=== PATIENT | female | born 1940 | race Caucasian/White ===

== ENCOUNTER 2019-04-29 10:22 | Inpatient (IN) ==
[2019-04-29] MEDS ORDERED: TYLENOL PO PRN (11:13)
[2019-04-29] MEDS ORDERED: ZOFRAN IV PRN (11:13)
[2019-04-29 12:19] LABS: HEMATOCRIT 43.5 % (37.0-47.0); HEMOGLOBIN 13.3 g/dL (12.0-16.0); MCH 27.5 PG (27-31); MCHC 30.6 g/dL (33-37); MCV 89.9 FL (81-99); MPV 10.8 FL (7.4-10.4); RBC 4.84 XMIL (4.2-5.4); RDW 13.9 % (11.5-14.5); WBC 13.2 X1000 (4.8-10.8)
[2019-04-29 12:31] LABS: ALBUMIN 4.3 g/dL (3.5-5.0); CALCIUM 8.8 mg/dL (8.8-10.2); CREATININE 1.7 mg/dL (0.5-0.9); POTASSIUM 4.3 mmol/L (3.5-5.1); TOTAL BILIRUBIN 0.4 mg/dL (0.20-1.00); TOTAL PROTEIN 7.8 g/dL (6.3-8.3)
[2019-04-29] MEDS: NS 1,000 ML IV SCH ×2 (13:58→20:45)
[2019-04-29 17:27] LABS: URINE SOURCE CATH
[2019-04-29 17:36] LABS: BILIRUBIN URINE NEGATIVE (NEGATIVE); BLOOD URINE NEGATIVE (NEGATIVE); COLOR YELLOW; GLUCOSE URINE NEGATIVE (NEGATIVE); KETONE URINE NEGATIVE (NEGATIVE); LEUKOCYTES URINE LARGE (NEGATIVE); NITRITE URINE NEGATIVE (NEGATIVE); PROTEIN URINE TRACE mg/dL (NEGATIVE); SP GRAVITY URINE 1.017; TURBIDITY URINE HAZY (CLEAR); UROBILINOGEN URINE NORMAL (NORMAL)
[2019-04-29 17:39] LABS: UR EPITHELIAL CELLS <10 /HPF (<10); URINE BACTERIA 4+ /HPF; URINE RBC <10 /HPF (<10); URINE WBC TNTC /HPF (<10)
[2019-04-29] MEDS: ZOCOR PO SCH (20:45)
[2019-04-29] MEDS: CIPRO PO SCH (20:46)
[2019-04-29] MEDS: ROBITUSSIN-DM PO PRN (20:46)
[2019-04-29] MEDS: NEURONTIN PO SCH (20:46)
[2019-04-30] MEDS: NS 1,000 ML IV SCH (02:37)
[2019-04-30] MEDS: PRILOSEC PO SCH ×2 (05:50→12:25)
[2019-04-30 06:09] LABS: HEMATOCRIT 41.1 % (37.0-47.0); HEMOGLOBIN 12.1 g/dL (12.0-16.0); MCH 26.7 PG (27-31); MCHC 29.4 g/dL (33-37); MCV 90.7 FL (81-99); RBC 4.53 XMIL (4.2-5.4); RDW 13.8 % (11.5-14.5); WBC 7.25 X1000 (4.8-10.8)
[2019-04-30 06:26] LABS: ALBUMIN 3.7 g/dL (3.5-5.0); CALCIUM 8.3 mg/dL (8.8-10.2); TOTAL BILIRUBIN 0.3 mg/dL (0.20-1.00); TOTAL PROTEIN 6.7 g/dL (6.3-8.3)
[2019-04-30] MEDS: CELEXA PO SCH (09:28)
[2019-04-30] MEDS: DITROPAN XL PO SCH (09:28)
[2019-04-30] MEDS: ASPIRIN PO SCH (09:29)
[2019-04-30] MEDS: CIPRO PO SCH ×2 (09:29→20:38)
[2019-04-30] MEDS: KLOR-CON PO SCH (09:29)
[2019-04-30] MEDS: MOBIC PO SCH (09:29)
[2019-04-30] MEDS: DUONEB (A & A) INH PRN ×3 (11:12→19:30)
--- NOTE | 2019-04-30 11:37 | Diag Imaging Result Doc PS360 ---
EXAM: CHEST-PORTABLE HISTORY: dyspnea TECHNIQUE: Single view of the chest was performed portably. COMPARISON: None. FINDINGS: Lung volumes are reduced. The cardiomediastinal silhouette is within normal limits. The pulmonary vasculature is not congested. No infiltrate, effusion, or pneumothorax is appreciated. IMPRESSION: No acute cardiopulmonary abnormality is identified. Electronically signed by Lisseth Richardson 04/30/2019 11:35 AM
--- NOTE | 2019-04-30 20:33 | HISTORY AND PHYSICAL ---
CHIEF COMPLAINT: Lightheadedness. HISTORY OF PRESENT ILLNESS: The patient is an 79-year-old female who presented to the office initially stating that she was lightheaded, fatigued. She felt like she was fainting and was going to fall. Blood pressure in the office was 70 to 80 systolic. She denies any vomiting or diarrhea. Denies any urinary complaints. Denies any fevers. States she has already taken her blood pressure medication this morning. States that she feels lightheaded, feels like she is going to pass out when she attempts to stand up. SOCIAL HISTORY: Patient is retired. She has a history of smoking. Does not currently smoke. She lives at home in [place]. PAST MEDICAL HISTORY: Obstructive sleep apnea, chronic back pain, hypertension, hyperlipidemia, osteoarthritis. ALLERGIES: No known drug allergies. MEDICATIONS: Dubberly p.r.n., Flonase as needed, Mobic as needed, gabapentin 600 t.i.d., Singulair, Xanax as needed, Lasix 20, omeprazole 20, losartan 50, oxybutynin, simvastatin, Celexa. FAMILY HISTORY: Positive for hypertension. REVIEW OF SYSTEMS: As noted above. In addition, she denies any fevers, chills, cough, congestion. Denies dysuria, frequency. Denies melena, hematochezia. Denies any weight loss. Check her weight on any regular basis. Denies headaches, blurred vision, change in vision. Denies any focalized weakness. PHYSICAL EXAMINATION: VITAL SIGNS: Reviewed. Temp 98.7 degrees, pulse 86, respiratory 20, BP 87/58. GENERAL: Patient is awake. She is alert. She is in no respiratory distress. HEENT: Normocephalic. NECK: Supple. CARDIOVASCULAR: Regular rate. CHEST: Clear, nonlabored. ABDOMEN: Soft, nondistended. EXTREMITIES: Moves all extremities. NEUROLOGIC: No changes. LABS: White count 13. Creatinine 1.7. ASSESSMENT: 1. Acute on chronic renal failure. 2. Leukocytosis. 3. Hypotension in a patient with a known history of high blood pressure. 4. Presyncope. 5. High cholesterol. 6. Obstructive sleep apnea. 7. Chronic pain. 8. Others. PLAN: We are going to admit patient to the hospital. IV fluids. Check urine culture. Follow her blood pressures. Further orders as needed. cc: Parish Toledo MD
[2019-04-30] MEDS: ZOCOR PO SCH (20:38)
[2019-04-30] MEDS: NEURONTIN PO SCH (20:38)
[2019-04-30] MEDS: ROBITUSSIN-DM PO PRN (20:45)
--- NOTE | 2019-05-01 00:23 | PROGRESS NOTE ---
DATE: 04/30/2019 SUBJECTIVE: Patient notes having increased cough, congestion and wheezing. She is having shortness of breath. Still having urinary frequency and urgency with urinary accidents. OBJECTIVE: Vital signs: Reviewed. She is afebrile, blood pressure stable, respiratory 20. General: The patient is lying in bed. She has forced expiratory wheezing that is much more prevalent in the neck than in her lung bases. HEENT: Normocephalic, atraumatic. Cardiovascular: Regular rate. Chest: Relatively clear. Good air movement. She has expiratory wheezing around her neck but her lung bases are clear. Abdomen: Soft, obese. Extremities: Moves all extremities. Neurologic: No changes. ASSESSMENT: 1. Urinary tract infection with gram-negative rods. 2. Acute on chronic renal failure, resolved. 3. Hypotension, resolved. 4 Hypertension. We are not going to restart her home blood pressure medications currently as her blood pressure has been low, stable. cc: Parish Toledo MD MTDD
[2019-05-01 04:46] VITALS: BP 134/89
[2019-05-01] MEDS: PRILOSEC PO SCH (07:10)
[2019-05-01] MEDS: DUONEB (A & A) INH PRN ×2 (07:28→11:06)
[2019-05-01] MEDS ORDERED: LASIX PO SCH (09:00)
[2019-05-01] MEDS: KLOR-CON PO SCH (09:10)
[2019-05-01] MEDS: CIPRO PO SCH (09:10)
[2019-05-01] MEDS: DITROPAN XL PO SCH (09:10)
[2019-05-01] MEDS: MOBIC PO SCH (09:10)
[2019-05-01] MEDS: ASPIRIN PO SCH (09:10)
[2019-05-01] MEDS: CELEXA PO SCH (09:10)
--- NOTE | 2019-05-02 21:40 | DISCHARGE SUMMARY ---
ADMISSION DATE: 04/29/2019 DISCHARGE DATE: 05/01/2019 DISCHARGE DIAGNOSES: 1. Escherichia coli urinary tract infection. 2. Hypotension, resolved. 3. Sepsis secondary to Escherichia coli urinary tract infection, resolved. 4. Fever, resolved. 5. Syncope, resolved. 6. Hypertension. Blood pressures have started creeping back up. We will continue to leave off her blood pressure medicine today and hopefully restart tomorrow. CONSULTATIONS: None. PROCEDURES: None. BRIEF HOSPITAL COURSE: The patient is an 79-year-old female who initially presented to the office with low blood pressures in the 70s and 80s systolic. She was admitted to the hospital, placed on fluids and antibiotics. Her urine eventually grew gram-negative rods, which grew out E. coli, pansensitive. She was already on a quinolone which she was tolerating well. Her blood pressures are better on discharge. She will be discharged home. We will restart her home medications. We will leave off her blood pressure medicine today, restart tomorrow if her blood pressures are elevated. DISPOSITION: The patient will continue all of her medications at home without any changes. She will continue Cipro for the next 5 days at home. She will follow up outpatient in the office in 1 week, sooner should symptoms worsen or return. cc: Parish Toledo MD
[2019-05-05] MEDS ORDERED: FOSAMAX PO SCH (07:00)
== END 2019-05-01 13:40 | disposition home or self-care (01) | DRG 872 ==
LOC: P.DIRADM 10:22 → P.MEDSURG 11:13
PROVIDERS: ADMIT Family Medicine; ATTEND Family Medicine